=== PATIENT | male | born 1965 | race Caucasian/White ===

== ENCOUNTER 2016-09-06 23:04 | Emergency (ER) | payer MEDICAID ==
[~2016-09-06] VITALS: Ht 175.3 cm; Wt 89.0 kg
[2016-09-07] MEDS ORDERED: IBUPROFEN 600MG TABLET PO NR (01:00)
[2016-09-07 03:45] VITALS: BP 119/78
== END 2016-09-07 04:18 | disposition home or self-care (01) ==
LOC: ER 23:05
DX: S16.1XXA Strain of muscle, fascia and tendon at neck level, initial encounter (principal); S39.012A Strain of muscle, fascia and tendon of lower back, initial encounter; V89.2XXA Person injured in unspecified motor-vehicle accident, traffic, initial encounter; Y93.89 Activity, other specified; Y92.411 Interstate highway as the place of occurrence of the external cause; Y99.8 Other external cause status
CPT/HCPCS: 72125; 72131; 99284; A4217